=== PATIENT | male | born 1970 | race Caucasian/White ===

== ENCOUNTER 2021-09-24 03:05 | Emergency (ER) | payer BC, OTHER ==
[~2021-09-24] VITALS: Ht 180.3 cm; Wt 97.1 kg
[~2021-09-24 03:05] MED LIST: AFRIN30 ML; ASPIR 8181 MG PO; BUSPIRONE HCL15 MG PO; FLOMAX0.4 MG PO; LISINOPRIL40 MG PO; LORATADINE10 MG PO; TIZANIDINE HCL4 MG PO; ULTRAM 50MG50 MG PO
[2021-09-24] MEDS ORDERED: LIDOCAINE VISC 2% SOLN 15 ML UDC ONE (03:29)
[2021-09-24] MEDS ORDERED: BELLADONNA ALK/PHENOBARBITAL 5 ML UDC ONE (03:30)
[2021-09-24] MEDS ORDERED: LIDOCAINE VISC 2% SOLN 15 ML UDC PO ONE (03:30)
[2021-09-24] MEDS ORDERED: MAGNESIUM/ALUMINUM/SIMETHICONE 30 ML UDC PO ONE (03:30)
[2021-09-24] MEDS ORDERED: MAGNESIUM/ALUMINUM/SIMETHICONE 30 ML UDC ONE (03:30)
[2021-09-24] MEDS ORDERED: BELLADONNA ALK/PHENOBARBITAL 5 ML UDC PO ONE (03:30)
== END 2021-09-24 04:15 | disposition home or self-care (01) ==
LOC: ER 03:12
DX: K21.9 Gastro-esophageal reflux disease without esophagitis (principal); R05.9 Cough, unspecified; R06.02 Shortness of breath; I10 Essential (primary) hypertension; F41.9 Anxiety disorder, unspecified; Z87.442 Personal history of urinary calculi; Z20.822 Contact with and (suspected) exposure to COVID-19
CPT/HCPCS: 71045; 99283; U0002

== ENCOUNTER 2023-04-16 10:36 | Emergency (ER) | payer BC ==
[~2023-04-16] VITALS: Ht 180.3 cm; Wt 97.1 kg
[2023-04-16] MEDS ORDERED: SODIUM CHLORIDE FLUSH 10 ML SYR IV PRN (11:15)
[2023-04-16] MEDS ORDERED: ASPIRIN 81 MG CHEW TAB PO ONE (11:15)
[2023-04-16] MEDS ORDERED: FAMOTIDINE 20 MG/2 ML VIAL IV STA (11:15)
[2023-04-16 11:20] LABS: BASOPHILS # (AUTO) 0.1 (0.0-0.1); BASOPHILS % 0.8 % (0.0-1.0); EOSINOPHILS # (AUTO) 0.2 (0.0-0.4); EOSINOPHILS % 2.3 % (0.0-6.0); HEMATOCRIT 44.1 % (38.2-49.6); HEMOGLOBIN 13.6 g/dL (14.0-18.0); LYMPHOCYTES % 27.4 % (18.0-39.1); MEAN CORPUSCULAR HGB CONC 30.8 g/dL (31-35); MEAN CORPUSCULAR VOLUME 77.9 fL (81-99); MONOCYTES # (AUTO) 0.6 (0.2-0.8); MONOCYTES % 7.7 % (4.4-11.3); NEUTROPHILS # (AUTO) 4.6 (2.1-6.9); NEUTROPHILS % 61.4 % (38.7-80.0); PLATELET COUNT 303 x10e3/uL (140-360); RED BLOOD COUNT 5.66 x10e6/uL (4.3-5.7)
[2023-04-16] MEDS ORDERED: DONNATAL/LIDOCAINE/MAALOX 30 ML SUSP PO ONE (11:35)
[2023-04-16 11:40] LABS: ALBUMIN 3.8 g/dL (3.5-5.0); ALBUMIN/GLOBULIN RATIO 1.3 (0.8-2.0); ANION GAP 12.4 mmol/L (8-16); CALCIUM 9.3 mg/dL (8.4-10.2); CREATININE, SERUM 1.15 mg/dL (0.72-1.25); POTASSIUM 3.4 mmol/L (3.5-5.1)
[2023-04-16] MEDS ORDERED: PANTOPRAZOLE SO40 MG PO (13:06)
[2023-04-16 13:18] VITALS: BP 134/76; PULSE 84; RESP 16; O2SAT 97
== END 2023-04-16 13:20 | disposition home or self-care (01) ==
LOC: ER 10:45
DX: R06.02 Shortness of breath (principal); R07.9 Chest pain, unspecified; K21.9 Gastro-esophageal reflux disease without esophagitis; I10 Essential (primary) hypertension; R94.31 Abnormal electrocardiogram [ECG] [EKG]
CPT/HCPCS: 36415; 71046; 80053; 83880; 84484; 85025; 93005; 99284

== ENCOUNTER 2025-06-06 10:31 | Emergency (ER) | payer BC, OTHER ==
[~2025-06-06] VITALS: Ht 177.8 cm; Wt 90.7 kg
[~2025-06-06 10:31] MED LIST changes: +PANTOPRAZOLE SO40 MG PO
[2025-06-06 10:45] VITALS: RESP 18
[2025-06-06] MEDS: ONDANSETRON HCL INJ 2MG/ML 2ML 2 MG/ML VIAL IV STA (12:07)
[2025-06-06] MEDS: SODIUM CHLORIDE 0.9% 1000ML 1,000 ML IV STA (12:07)
[2025-06-06 13:01] LABS: BASOPHILS % 0.8 % (0.0-1.0); EOSINOPHILS % 1.7 % (0.0-6.0); LYMPHOCYTES % 20.3 % (18.0-39.1); MONOCYTES % 8.6 % (4.4-11.3); NEUTROPHILS % 68.1 % (38.7-80.0); RED CELL DISTRIBUTION WIDTH 15.9 % (11.7-14.4)
[2025-06-06 13:25] LABS: EST GLOMERULAR FILTRATION RATE 76.0 ML/MIN (>=60)
[2025-06-06] MEDS ORDERED: DICYCLOMINE HCL20 MG PO (13:50)
[2025-06-06] MEDS ORDERED: ONDANSETRON ODT4 MG PO (13:50)
[2025-06-06 14:22] VITALS: PULSE 16; TEMP 98.6; O2SAT 100
== END 2025-06-06 14:24 | disposition home or self-care (01) ==
LOC: ER 10:38
DX: R10.31 Right lower quadrant pain (principal); K52.9 Noninfective gastroenteritis and colitis, unspecified; R11.0 Nausea; I10 Essential (primary) hypertension; K21.9 Gastro-esophageal reflux disease without esophagitis; Z87.442 Personal history of urinary calculi
CPT/HCPCS: 36415; 76705; 80053; 83690; 85025; 99284; J2405; J2470; J7030